=== PATIENT | female | born 1950 | race Caucasian/White ===

== ENCOUNTER 2018-02-15 05:49 | Day surgery (SDC) | payer MEDICARE, OTHER ==
[~2018-02-15] VITALS: Ht 172.7 cm; Wt 76.2 kg
--- NOTE | ~2018-02-15 | OP ---
PATIENT NAME: REHANA ESPINAL MEDICAL RECORD: [id number] :52 LOCATION:[facility] ADMISSION DATE: SURGEON: ASHWIN GHOSH MD DATE OF OPERATION: 02/15/2018 PREOPERATIVE DIAGNOSES: Nasal obstruction, septal deviation, and bilateral inferior turbinate hypertrophy. POSTOPERATIVE DIAGNOSES: Nasal obstruction, septal deviation, and bilateral inferior turbinate hypertrophy. PROCEDURES: Septoplasty and bilateral inferior turbinate reduction. SURGEON: Ashwin Ghosh MD ANESTHESIA: General orotracheal. BLOOD LOSS: Less than 5 cc. SPECIMENS: None. PACKING: Naik splints bilaterally. COMPLICATIONS: None. DISPOSITION: Recovery, stable. DESCRIPTION OF PROCEDURE: She was brought to the operating room, placed in the supine position, and sedated and intubated by anesthesia. Eyes were taped. Head drape was applied and she was positioned for nasal surgery. Both sides of the nose were injected including anterior septum, floor of the nose, and inferior turbinates with a total of less than 2 cc of 1% lidocaine with 1:100,000 epinephrine. Two Afrin pledgets were placed in both sides of the nose, although she had been decongested with Afrin preoperatively. She was positioned, prepped, and draped in the usual fashion. Then, all the Afrin pledgets were removed from the nose. A right-sided Derrek incision was made. Ipsilateral mucoperichondrial flap was elevated. She had a huge spur on the right side with deflection of the septum into the left nostril. On dissecting underneath the spur, a chisel was used to remove spur from the left side. Then, the bony cartilaginous junction was disarticulated and the septum was disarticulated from maxillary spine. The redundant portion was removed so that the septum could lay straight in the midline. Relaxing incisions were made superiorly. Cuts were made above and below bony spur posteriorly, which was removed inferiorly. This allowed the septum to lay flat and in the midline. Both inferior turbinates were medialized with a Fromberg. Gruenwald was used to take down the inferior redundant portion of the turbinates. Suction cautery on setting of 30 was used to stop any bleeding from the turbinates and they were then both outfractured with a Harrison elevator. The nasopharynx was suctioned and then nose was carefully examined. There was no bleeding. The field was clean and dry. Septum was flat and in midline. The incision was closed with interrupted 4-0 chromic. Naik splints with mupirocin ointment were then placed bilaterally and sutured through the anterior membranous septum with 2-0 Prolene on a Alcon needle. She was awakened, extubated, and transported to recovery in good condition. No complications. OPERATIVE REPORT [id number] REHANA ESPINAL SOPHIA TRANSINT:[id number] Voice Confirmation ID: [id number] DOCUMENT ID: [id number] ASHWIN GHOSH MD at 1254 CC: [id number] DICTATION DATE: 02/15/18 1316 TOW MATE: 02/15/18 1521 [facility] 02/15/18 [id number] [place] [address]
--- NOTE | ~2018-02-15 | HP ---
PATIENT: REHANA ESPINAL MEDICAL RECORD: [id number] ACCOUNT: [id number] LOCATION:[facility] : 52 ADMISSION DATE: 02/15/18 HISTORY AND PHYSICAL EXAMINATION HISTORY: Ms. Espinal has had significant problems with nasal obstruction, being refractory to medical management with no improvement. She is being admitted for septoplasty and turbinate reduction. PAST MEDICAL HISTORY: Includes hypothyroidism. PAST SURGICAL HISTORY: Includes knee replacement and closed reduction of nasal fracture. CURRENT MEDICATIONS: Include levothyroxine, lovastatin, Lasix. ALLERGIES: No known drug allergies. PHYSICAL EXAMINATION: GENERAL: She is healthy appearing. FACE: Normal and symmetric. EYES: Sclerae and conjunctivae are normal. NOSE: She has got septal deviation and large inferior turbinates. ORAL CAVITY AND OROPHARYNX: Tongue is midline. Pharynx is normal. NECK: No masses or adenopathy. CHEST: Clear. CARDIOVASCULAR: Regular rate and rhythm. No murmur. EXTREMITIES: Normal. IMPRESSION: 1. Nasal obstruction. 2. Bilateral inferior turbinate hypertrophy and septal deviation. PLAN: Septoplasty and bilateral inferior turbinate reduction. TRANSINT:[id number] Voice Confirmation ID: [id number] DOCUMENT ID: [id number] ASHWIN AVILES MD at 1254 CC: [id number] DICTATION DATE: 02/11/18 1345 IMMUNOPATHOLOGIST: 02/11/18 1405 [facility] 02/15/18 [id number] [place] [address]
[~2018-02-15 05:49] MED LIST: LASIX40 MG PO; LEVOXYL50 MCG PO; LOVASTATIN10 MG PO
[2018-02-15 06:04] LABS: HEMATOCRIT 40.6 % (36.0-48.0); HEMOGLOBIN 13.7 g/dL (12-16); MCHC 33.7 g/dL (31.0-37.0); MCV 94.9 fL (80.0-100.0); MEAN PLATELET VOLUME 10.9 fL (7.4-10.4); RBC 4.28 10x6/uL (4.00-5.40); RDW 13.3 % (11.5-14.5); WBC 6.9 10x3/uL (4.8-10.8)
[2018-02-15 07:42] VITALS: BP 119/74; Ht 172.7 cm; Wt 76.2 kg
== END 2018-02-15 12:05 | disposition home or self-care (01) ==
LOC: D.OPS 05:49 → D.PAN 07:30 → D.OPS 07:45
PROVIDERS: Anesthesiology
DX: J34.89 Other specified disorders of nose and nasal sinuses (principal); J34.2 Deviated nasal septum; J34.3 Hypertrophy of nasal turbinates; Z01.812 Encounter for preprocedural laboratory examination

== ENCOUNTER 2018-06-17 08:00 | Outpatient (CLI) | payer MEDICARE, OTHER ==
[2018-02-15 07:42] VITALS: BMI 25.6
== END 2018-06-17 09:00 | disposition home or self-care (01) ==
LOC: D.MAMMO 08:00
DX: Z12.31 Encounter for screening mammogram for malignant neoplasm of breast (principal)